=== PATIENT | female | born 2000 | race Caucasian/White ===

== ENCOUNTER 2025-02-01 19:22 | Emergency (ER) | payer OTHER ==
[2025-02-01] MEDS ORDERED: HYDROcodone/Acetaminophen 5/325 mg Tablet ONE (20:09)
== END 2025-02-01 20:18 | disposition home or self-care (01) ==
LOC: CSHERS 19:22
DX: M54.42 Lumbago with sciatica, left side (principal)
CPT/HCPCS: 99283

== ENCOUNTER 2025-03-11 18:37 | Emergency (ER) | payer OTHER ==
[2025-03-11] MEDS ORDERED: HYDROcodone/Acetaminophen 5/325 mg Tablet ONE (19:35)
[2025-03-11] MEDS ORDERED: Ketorolac Tromethamine 30 MG (1 mL) VIAL ONE (19:36)
[2025-03-11 21:17] LABS: Glucose, Urine (Dipstick) Normal (Negative); Leukocyte 25 (Negative); Protein, Urine (Dipstick) Negative (Neg-Trace); Specific Gravity, Urine 1.010 (1.005-1.030)
[2025-03-11 21:35] LABS: Bacteria/HPF 1+ HPF (None Seen); CAUTI Indications for Culture Pelvic or flank pain; RBC/HPF 0-3 HPF (0-3); WBC/HPF 0-3 HPF (0-3)
[2025-03-11 21:37] LABS: Urine Culture Reflex No No
== END 2025-03-11 20:55 | disposition home or self-care (01) ==
LOC: CSHERS 18:37
DX: M54.50 Low back pain, unspecified (principal); G89.29 Other chronic pain
CPT/HCPCS: 36416; 81001; 96372; 99283; J1885